=== PATIENT | female | born 1950 | race Caucasian/White ===

== ENCOUNTER 2023-03-07 10:50 | Inpatient (IN) | payer OTHER, MEDICARE ==
[2023-03-07 11:16] VITALS: BMI 26.2
[2023-03-07] MEDS ORDERED: ACETAMINOPHEN 325 MG TABLET (FP) PO PRN (16:04)
[2023-03-07] MEDS ORDERED: MAG HYDROX/AL HYDROX/SIMETH 30 ML UNIT-DOSE CUP PO PRN (16:04)
[2023-03-07] MEDS ORDERED: BACLOFEN 10 MG TABLET (FP) PO PRN (16:04)
[2023-03-07] MEDS ORDERED: DICYCLOMINE HCL 10 MG CAPSULE PO PRN (16:04)
[2023-03-07] MEDS ORDERED: POLYETHYLENE GLYCOL (HEALTHYLAX) 3350 17 GM PACKET PO PRN (16:04)
[2023-03-07] MEDS ORDERED: LOPERAMIDE HCL 2 MG CAPSULE PO PRN (16:04)
[2023-03-07] MEDS ORDERED: guaiFENesin 600 MG TABLET.ER (FP) PO PRN (16:04)
[2023-03-07] MEDS ORDERED: NALOXONE HCL (KLOXXADO) 8 MG SPRAY NS PRN (16:04)
[2023-03-07] MEDS ORDERED: ONDANSETRON *ODT* 4 MG TABLET SL PRN (16:04)
[2023-03-07] MEDS ORDERED: BENZONATATE 200 MG CAPSULE PO PRN (16:04)
[2023-03-07] MEDS ORDERED: NALOXONE HCL 0.4 MG/ML VIAL IM PRN (16:04)
[2023-03-07] MEDS ORDERED: BENZOCAINE/MENTHOL (CHLORASEPTIC ) LOZENGE MM PRN (16:04)
[2023-03-07] MEDS ORDERED: MAGNESIUM HYDROX 2400MG/30ML ORAL SUSPENSION 30 ML CUP PO PRN (16:04)
[2023-03-07] MEDS ORDERED: LORazepam 2 MG TABLET PO SCH (17:00)
[2023-03-07] MEDS: LORazepam 1 MG TABLET PO SCH ×2 (17:22→22:22)
[2023-03-07] MEDS ORDERED: MELATONIN 5 MG TABLETS PO SCH (22:00)
[2023-03-07] MEDS: THIAMINE HCL 100 MG TABLET (FP) PO SCH (22:22)
[2023-03-07] MEDS: ATORVASTATIN CA 10 MG TABLET (FP) PO SCH (22:22)
[2023-03-08] MEDS: LORazepam 1 MG TABLET PO PRN ×2 (01:00→13:55)
[2023-03-08] MEDS: LORazepam 1 MG TABLET PO SCH ×4 (05:51→22:22)
[2023-03-08] MEDS ORDERED: HYDROCHLOROTHIAZIDE 25 MG TABLET (FP) PO SCH (10:00)
[2023-03-08] MEDS: PRENATAL VITAMINS W/ FOLIC ACID TABLET (FP) PO SCH (10:07)
[2023-03-08] MEDS: LOSARTAN 50MG/HCTZ 12.5MG 1 TAB PO SCH (10:07)
[2023-03-08 11:09] LABS: HEMATOCRIT 45.3 % (32.4-45.2); HEMOGLOBIN 15.1 GM/dL (10.7-15.3); MCH 28.5 pg (25.7-33.7); MCHC 33.2 g/dl (32.0-36.0); MEAN CELL VOLUME 85.7 fl (80-96); MEAN PLT VOLUME 7.1 fl (7.5-11.1); PLATELET COUNT 313 10^3/uL (134-434); RBC 5.29 M/mm3 (3.60-5.2); RDW 13.6 % (11.6-15.6); WHITE BLOOD COUNT 8.4 K/mm3 (4.0-10.0)
[2023-03-08 11:19] LABS: POTASSIUM 4.8 mmol/L (3.5-5.1)
[2023-03-08 11:41] LABS: BLOOD UREA NITROGEN 20.4 mg/dL (7-18)
[2023-03-08 11:44] LABS: ALBUMIN 4.3 g/dl (3.4-5.0)
[2023-03-08 11:45] LABS: BILIRUBIN,TOTAL 1.2 mg/dL (0.2-1); CALCIUM 10.1 mg/dL (8.5-10.1)
[2023-03-08] MEDS: traZODone HCL 50 MG TABLET (FP) PO SCH (22:20)
[2023-03-08] MEDS: GABAPENTIN 300 MG CAPSULE PO SCH (22:20)
[2023-03-08] MEDS: ATORVASTATIN CA 10 MG TABLET (FP) PO SCH (22:21)
[2023-03-08] MEDS: lamoTRIgine 100 MG TABLET PO SCH (22:21)
[2023-03-08] MEDS: THIAMINE HCL 100 MG TABLET (FP) PO SCH (22:22)
[2023-03-08] MEDS: LURASIDONE HCL 40 MG TABLET PO SCH (22:23)
[2023-03-09] MEDS: LORazepam 1 MG TABLET PO SCH ×4 (05:14→22:04)
[2023-03-09] MEDS: LOSARTAN 50MG/HCTZ 12.5MG 1 TAB PO SCH (10:29)
[2023-03-09] MEDS: PRENATAL VITAMINS W/ FOLIC ACID TABLET (FP) PO SCH (10:29)
[2023-03-09] MEDS: lamoTRIgine 100 MG TABLET PO SCH (22:04)
[2023-03-09] MEDS: LURASIDONE HCL 40 MG TABLET PO SCH (22:04)
[2023-03-09] MEDS: THIAMINE HCL 100 MG TABLET (FP) PO SCH (22:04)
[2023-03-09] MEDS: traZODone HCL 50 MG TABLET (FP) PO SCH (22:04)
[2023-03-09] MEDS: GABAPENTIN 300 MG CAPSULE PO SCH (22:05)
[2023-03-09] MEDS: ATORVASTATIN CA 10 MG TABLET (FP) PO SCH (22:06)
[2023-03-10] MEDS ORDERED: LORazepam 0.5 MG TABLET PO PRN
[2023-03-10] MEDS: LORazepam 0.5 MG TABLET PO SCH ×4 (05:58→22:17)
[2023-03-10] MEDS: PRENATAL VITAMINS W/ FOLIC ACID TABLET (FP) PO SCH (10:00)
[2023-03-10] MEDS: LOSARTAN 50MG/HCTZ 12.5MG 1 TAB PO SCH (10:01)
[2023-03-10] MEDS: GABAPENTIN 300 MG CAPSULE PO SCH (22:15)
[2023-03-10] MEDS: THIAMINE HCL 100 MG TABLET (FP) PO SCH (22:16)
[2023-03-10] MEDS: ATORVASTATIN CA 10 MG TABLET (FP) PO SCH (22:16)
[2023-03-10] MEDS: lamoTRIgine 100 MG TABLET PO SCH (22:16)
[2023-03-10] MEDS: traZODone HCL 50 MG TABLET (FP) PO SCH (22:16)
[2023-03-10] MEDS: LURASIDONE HCL 40 MG TABLET PO SCH (22:17)
[2023-03-11] MEDS ORDERED: LORazepam 0.5 MG TABLET PO ONE (05:00)
[2023-03-11] MEDS: PRENATAL VITAMINS W/ FOLIC ACID TABLET (FP) PO SCH (10:24)
[2023-03-11] MEDS: LOSARTAN 50MG/HCTZ 12.5MG 1 TAB PO SCH (10:24)
[2023-03-11] MEDS: THIAMINE HCL 100 MG TABLET (FP) PO SCH (22:25)
[2023-03-11] MEDS: GABAPENTIN 300 MG CAPSULE PO SCH (22:25)
[2023-03-11] MEDS: lamoTRIgine 100 MG TABLET PO SCH (22:25)
[2023-03-11] MEDS: traZODone HCL 50 MG TABLET (FP) PO SCH (22:26)
[2023-03-11] MEDS: ATORVASTATIN CA 10 MG TABLET (FP) PO SCH (22:26)
[2023-03-11] MEDS: LURASIDONE HCL 40 MG TABLET PO SCH (22:26)
[2023-03-12 06:52] VITALS: RESP 17
[2023-03-12 09:37] VITALS: BP 129/77; PULSE 64; TEMP 98.1
[2023-03-12] MEDS: PRENATAL VITAMINS W/ FOLIC ACID TABLET (FP) PO SCH (09:58)
[2023-03-12] MEDS: LOSARTAN 50MG/HCTZ 12.5MG 1 TAB PO SCH (09:58)
== END 2023-03-12 10:30 | disposition home or self-care (01) | DRG 897 ==
LOC: YASAS 10:50 → Y6N 13:22
PROVIDERS: ADMIT Allergy & Immunology; ATTEND Allergy & Immunology
PROC: HZ2ZZZZ Detoxification Services for Substance Abuse Treatment (ICD-10-PCS; principal; 2023-03-07)
DX: F10.230 Alcohol dependence with withdrawal, uncomplicated (principal); F12.20 Cannabis dependence, uncomplicated; F31.9 Bipolar disorder, unspecified; F10.280 Alcohol dependence with alcohol-induced anxiety disorder; F10.282 Alcohol dependence with alcohol-induced sleep disorder; F10.24 Alcohol dependence with alcohol-induced mood disorder; F60.3 Borderline personality disorder; E78.00 Pure hypercholesterolemia, unspecified; I10 Essential (primary) hypertension; Z62.810 Personal history of physical and sexual abuse in childhood; Z91.410 Personal history of adult physical and sexual abuse; Z87.891 Personal history of nicotine dependence
CPT/HCPCS: 36415; 80053; 85027; 86780; 87635; J0475